=== PATIENT | male | born 2000 | race Caucasian/White ===

== ENCOUNTER 2018-03-06 19:56 | Emergency (ER) | payer OTHER ==
[~2018-03-06] VITALS: Ht 180.3 cm; Wt 68.2 kg
[2018-03-06 20:01] VITALS: TEMP 97
[2018-03-06] MEDS ORDERED: VITAMIN C500 MG PO (20:04)
[2018-03-06 22:03] VITALS: BP 110/79; PULSE 85
== END 2018-03-06 22:05 | disposition home or self-care (01) ==
LOC: COL.ER 19:56
DX: Q25.1 Coarctation of aorta (principal); R07.89 Other chest pain; F41.9 Anxiety disorder, unspecified